=== PATIENT | female | born 1975 | race American Indian/Alaskan Native ===

== ENCOUNTER 2019-11-14 08:31 | Day surgery (SDC) | payer OTHER, MEDICAID ==
--- NOTE | 2019-11-14 08:18 | History and Physical Report ---
History of Present Illness Date of examination: 11/14/19 Date of admission: November 14, 2019 Chief complaint: Uterine fibroids History of present illness: 44-year-old -0-1-3 with a history of symptomatic uterine fibroids. The patient reports heavy painful menses. Pelvic ultrasound demonstrated a large fibroid uterus with the uterus measuring approximately 12 cm. The patient is failed medical management and has elected to undergo definitive surgical management Past History Past Medical History: other (Uterine fibroids) Past Surgical History: myomectomy Social history: single - Obstetrical History : 4 Para: 3 Hx # Term Pregnancies: 3 Number of Pregnancies: 0 Spontaneous Abortions: 1 Induced : 0 Number of Living Children: 3 Medications and Allergies Allergies Allergy/AdvReac Type Severity Reaction Status Date / Time ciprofloxacin [From Cipro] Allergy Tachycardia Verified 11/06/19 10:32 metronidazole [From Flagyl] Allergy Tachycardia Verified 11/06/19 10:32 phenazopyridine Allergy Hives Verified 11/06/19 10:32 [From Pyridium] Home Medications Medication Instructions Recorded Confirmed Last Taken Type Ferrous Sulfate [Feosol] 325 mg PO BID 11/06/19 11/06/19 Unknown History Cholecalciferol Vit D3 [Vitamin D3 1,000 unit PO QDAY 11/12/19 11/12/19 Unknown History 1,000 UNIT TAB] Review of Systems All systems: negative Genitourinary: vaginal bleeding, pelvic pain - Vital Signs Vital signs: Vital Signs Temp Pulse Resp BP Pulse Ox 98.4 F 74 18 98/72 100 11/12/19 08:45 11/12/19 08:45 11/12/19 08:45 11/12/19 08:45 11/12/19 08:45 Temp Pulse Resp BP Pulse Ox 98.4 F 74 18 98/72 100 11/12/19 08:45 11/12/19 08:45 11/12/19 08:45 11/12/19 08:45 11/12/19 08:45 - Physical Exam Breasts: Positive: deferred Cardiovascular: Regular rate Lungs: Positive: Clear to auscultation Abdomen: Positive: normal appearance Results All other labs normal. Assessment and Plan - Patient Problems (1) Uterine fibroid Status: Acute Plan to address problem: The patient is scheduled to undergo a robotic hysterectomy (2) Menorrhagia Status: Acute (3) Dysmenorrhea Status: Acute
[2019-11-14] MEDS ORDERED: NEOMY 40 MG/POLYMYXIN B 200,000 UNITS/ML (GU) AMPULE IR ONE ×2 (08:46→11:13)
[2019-11-14] MEDS ORDERED: ONDANSETRON 4 MG/2 ML INJ IV PRN (08:55)
[2019-11-14] MEDS ORDERED: fentaNYL 100 MCG/2 ML INJ IV ONE (08:55)
[2019-11-14] MEDS ORDERED: ACETAMINOPHEN 500 MG TAB PO ONE (08:56)
[2019-11-14] MEDS ORDERED: MAGNESIUM OXIDE 400 MG TAB PO ONE (08:56)
[2019-11-14] MEDS ORDERED: MIDAZOLAM 2 MG/2 ML INJ IV NR (09:00)
[2019-11-14] MEDS ORDERED: GABAPENTIN 300 MG CAP PO NR (09:00)
[2019-11-14] MEDS ORDERED: LACTATED RINGERS 1,000 ML IV SCH (09:00)
[2019-11-14] MEDS ORDERED: ceFAZolin/Water 2 GM/20 ML 2 GM/20 ML SYRINGE IV NR (09:00)
[2019-11-14] MEDS ORDERED: CELECOXIB 200 MG CAP PO NR (09:00)
--- NOTE | 2019-11-14 09:00 | Anesthesia Day of Surgery ---
Anesthesia Day of Surgery - Day of Surgery Patient Examined: Yes Patient H&P Reviewed: Yes Patient is NPO: Yes
--- NOTE | 2019-11-14 09:01 | Anesthesia Consultation ---
Anesthesia Consult and Med Hx Date of service: 11/14/19 - Airway Anesthetic Teeth Evaluation: Good ROM Head & Neck: Adequate Mental/Hyoid Distance: Adequate Mallampati Class: Class II Intubation Access Assessment: Good - Pre-Operative Health Status Proposed Anesthetic Plan: General Nerve Block: TAP - Central Nervous System Hx Psychiatric Problems: No - Hematic Hx Sickle Cell Disease: No - Other Systems Hx Alcohol Use: Yes (Occas) Hx Substance Use: Yes (Marijuana occas) Hx Cancer: No
[2019-11-14] MEDS ORDERED: BUPIVACAINE-EPINEPHRINE/PF 0.25%-1:200,000 (30 ML) VIAL INFILTRATI ONE ×2 (09:29)
[2019-11-14] MEDS ORDERED: PHENYLEPHRINE/NS 1,000 MCG/10 ML SYRINGE (OR USE) IV ONE (11:06)
[2019-11-14] MEDS ORDERED: dexAMETHasone 20 MG/5 ML VIAL ONE (11:07)
[2019-11-14] MEDS ORDERED: ONDANSETRON 4 MG/2 ML INJ ONE (11:07)
[2019-11-14] MEDS ORDERED: SODIUM CHLORIDE 0.9% IRRIG SOLN 2000 ML IR ONE (11:14)
[2019-11-14] MEDS ORDERED: SODIUM CHLORIDE 0.9% IRR 1,500 ML BOTTLE IR ONE (11:14)
[2019-11-14] MEDS ORDERED: HYDROmorphone 1 MG/1 ML INJ ONE (11:40)
[2019-11-14] MEDS ORDERED: LIDOCAINE MPF (2%) 20 MG/1 ML VIAL 5 ML ONE (11:40)
[2019-11-14] MEDS ORDERED: ROCURONIUM 50 MG/5 ML INJ IV ONE (11:40)
[2019-11-14] MEDS ORDERED: propofoL 200 MG/20 ML VIAL IV ONE (11:41)
[2019-11-14] MEDS ORDERED: LACTATED RINGERS 1,000 ML ONE (12:19)
--- NOTE | 2019-11-14 12:24 | Operative Report ---
Operative Report Operative Report: Date of surgery: November 14, 2019 Preoperative diagnoses: Symptomatic uterine fibroids Postoperative diagnoses: Same as above Procedure: Robotic hysterectomy; bilateral salpingectomy; lysis of adhesions Surgeon: Radha Rock M.D. Cover Creaser: Lily Gonsalez Anesthesia: Gen. endotracheal anesthesia Estimated blood loss: 50 mL Pathology: Uterus, cervix, leiomyoma, bilateral tubes Indication: 44-year-old -0-1-3 with a history of symptomatic uterine fibroids. The patient is elected to undergo definitive surgical management. Procedure: The patient was taken to the operating room and given general endotracheal anesthesia without complication. She is prepped and draped in a normal sterile fashion. A bivalve speculum was placed in the patient's vagina and a single- tooth tenaculum placed on the anterior lip of the cervix. The uterus was sounded with the uterine sound. A Boundless uterine manipulator was placed in the bivalve speculum was then removed. Attention was then turned to the patient's abdomen where a millimeter supra umbilical skin incision was then made. A Veress needle was placed and peritoneal entry was verified water-filled syringe. Insufflation of the peritoneal cavity was performed with CO2 gas. The 12 mm trocar was then placed under direct visualization. An additional 8 mm trocar was placed on the patient's left and right lateral side just opposite of the supraumbilical trocar. An additional 8 mm right lateral trocar was then placed as the accessory port. The supraumbilical 12 mm trocar site was closed with the Arnaud Ivey device and 0-vicryl suture. The patient was then placed in steep Trendelenburg. The da Cristi robot was then engaged. A fenestrated forcep was placed in arm 2 and a vessel sealer was placed in arm 1. Markedly enlarged fibroid uterus with multiple leiomyoma. The uterus was densely adherent to peritoneum anteriorly. The anterior cul-de-sac was completely obliterated by the adhesions. The ovaries were normal in appearance the surgeon then transferred to the surgical console. The mesosalpinx was then isolated on the right. The vessel sealer was used to coagulate the mesosalpinx which was then transected. The tube was transected from the ovary. The tubo-ovarian ligament was then coagulated and transected. Extensive lysis of adhesions had to be performed with the monopolar scissors in order to release the anterior aspect of the uterus. The round ligament was then coagulated and transected also. The vesicouterine peritoneum was then entered from the patient's right side. The uterine vessels were then coagulated with the vessel sealer. The vessels were then transected . Attention was then turned to the patient's left side where the tubo-ovarian ligament and mesosalpinx were again isolated coagulated and transected. The vesical peritoneum was then entered from the left and joined in the midline. Peritoneum was reflected off of the lower uterine segment. Uterine vessels were then coagulated and then transected. The blood supply to the uterus was adequately contained, a posterior colpotomy was made. The V care ring was visualized. Posterior colpotomy was created with the monopolar scissors. The incision was continued circumferentially until anterior colpotomy was made. The cervix and uterus were amputated from the vaginal cuff. The uterus had to be bivalved and a leiomyoma removed with the monopolar scissors and to facilitate delivery through the vagina. The uterus was then removed along with the leiomyoma and tubes bilaterally through the vagina and a warm laparotomy sponge was placed and maintain the pneumoperitoneum. The vaginal cuff was then closed in a running fashion with V lock suture. Irrigation of the pelvis was performed. Hemoblast was applied to the incision. The skin was then reapproximated with 4-0 Monocryl. The tissue was sent to pathology which included the cervix, bilateral tubes and uterus. The patient was then successfully extubated. She was then taken to the recovery room in stable condition. All sponge laps and needle counts were correct x2.
[2019-11-14] MEDS ORDERED: NEOSTIGMINE 10MG/10 ML INJ MDV ONE (12:29)
[2019-11-14] MEDS ORDERED: GLYCOPYRROLATE 0.4 MG/2 ML INJ ONE (12:29)
[2019-11-14] MEDS ORDERED: KETOROLAC 30 MG/1 ML INJ ONE (12:29)
[2019-11-14] MEDS: HYDROmorphone 1 MG/1 ML INJ IV PRN ×2 (13:18→13:28)
[2019-11-14 18:06] VITALS: BP 109/62
[2019-11-14] MEDS ORDERED: oxyCODONE /ACETAMINOPHEN 5-325MG TAB PO ONE (18:15)
--- NOTE | 2019-11-14 21:20 | Post Anesthesia Evaluation ---
- Post Anesthesia Evaluation Patient Participated: Yes Airway Patent: Yes Stable Respiratory Function: Yes Nausea/Vomiting: No Temp > 96.8F: Yes Pain Manageable: Yes Adequeate Hydration: Yes Anesthesia Complications: No Block Receding Appropriately: Not Applicable Patient on Ventilator: No
== END 2019-11-14 18:15 | disposition home or self-care (01) ==
LOC: OR 08:31
PROVIDERS: ATTEND Obstetrics & Gynecology
DX: D25.9 Leiomyoma of uterus, unspecified (principal); N85.02 Endometrial intraepithelial neoplasia [EIN]; N72 Inflammatory disease of cervix uteri; N83.8 Other noninflammatory disorders of ovary, fallopian tube and broad ligament; Z11.59 Encounter for screening for other viral diseases; Z79.899 Other long term (current) drug therapy; Z72.89 Other problems related to lifestyle; Z98.890 Other specified postprocedural states; Z88.8 Allergy status to other drugs, medicaments and biological substances
CPT/HCPCS: 58554; 64488; 81025; 86850; 86900; 86901; 88307; A4217; J0690; J1100; J1170; J1885; J2250; J2370; J2405; J2704; J2710; J3010; J7120; S2900; U0003; 64450